=== PATIENT | female | born 1990 | race Two or more races ===

== ENCOUNTER 2024-04-14 08:33 | Emergency (ER) | payer OTHER ==
[~2024-04-14] VITALS: Ht 160 cm; Wt 63.6 kg
[2024-04-14 08:39] VITALS: BP 112/68; PULSE 92; RESP 18; TEMP 98.7; O2SAT 95
[2024-04-14] MEDS: ACETAMINOPHEN 500 MG TABLET PO ONE (10:33)
[2024-04-14] MEDS: GENTAMICIN SULFATE 0.3% OPHTHALMIC SOLUTION 5 ML OD ONE (10:34)
[2024-04-14] MEDS ORDERED: NAPH15DR75 OD (10:40)
[2024-04-14] MEDS ORDERED: ACET-66 PO (10:40)
== END 2024-04-14 11:28 | disposition home or self-care (01) ==
LOC: EMS 08:33
DX: H10.89 Other conjunctivitis (principal)
CPT/HCPCS: 84703; 99283